=== PATIENT | female | born 1960 | race Two or more races ===

== ENCOUNTER 2021-09-29 06:20 | Day surgery (SDC) | payer OTHER ==
[~2021-09-29 06:20] MED LIST: AIRDUO RESPICL1 EAC2; ATORVASTATIN CA40 MG; CITALOPRAM; CLARITIN10 MG; ENALAPRIL MALE2.5 MG; FLUCONAZOL100 MG/50; HORIZANT300 MG; METFORMIN HCL500 M3; MODAFINIL100 MG; NASAL MIST126 ML NASAL; PEPCID; PROAIR RESPICL90 MCG; SINGULAIR10 MG; SYNTHROID75 MCG; TOPROL XL25 M1
[2021-09-29] MEDS ORDERED: PERCOCET 5-3251 EACH PO (12:24)
[2021-09-29] MEDS ORDERED: NEURONTIN300 MG PO (12:24)
[2021-09-29] MEDS ORDERED: KETO10TA2 PO (12:25)
== END 2021-09-29 17:15 | disposition home or self-care (01) ==
LOC: CIR.AMB 06:20
PROVIDERS: ATTEND Surgery
DX: K60.1 Chronic anal fissure (principal); Z20.822 Contact with and (suspected) exposure to COVID-19

== ENCOUNTER 2022-05-16 06:38 | Day surgery (SDC) | payer OTHER ==
[~2022-05-16 06:38] MED LIST changes: +KETO10TA2 PO; +NEURONTIN300 MG PO; +PERCOCET 5-3251 EACH PO
== END 2022-05-16 11:00 | disposition home or self-care (01) ==
LOC: AMB-ENDOS 06:38
PROVIDERS: ATTEND Surgery
DX: K29.00 Acute gastritis without bleeding (principal); K31.7 Polyp of stomach and duodenum; Z20.822 Contact with and (suspected) exposure to COVID-19; K44.9 Diaphragmatic hernia without obstruction or gangrene; K21.9 Gastro-esophageal reflux disease without esophagitis; E78.5 Hyperlipidemia, unspecified; E03.9 Hypothyroidism, unspecified; E11.9 Type 2 diabetes mellitus without complications